=== PATIENT | female | born 1965 | race Caucasian/White ===

== ENCOUNTER → 2019-05-01 07:33 | Outpatient (CLI) | payer BC, SELFPAY ==
[2019-04-09 13:15] VITALS: BMI 28.6
--- NOTE | 2019-05-02 12:53 | STRESSREP_ITS ---
Stress Test Report Date: 05/01/2019 Procedure: Exercise tolerance test/imaging study Indications: Chest pain, cardiomyopathy Consent: Per the patient Procedure: The patient exercised on a [place] protocol for 9 minutes and 30 seconds achieving a peak heart rate of 133 bpm (80 % predicted maximal heart rate) with a peak blood pressure 172/74 mmHg and a peak MET capacity of 10.9 METs. The baseline ECG demonstrated normal sinus rhythm, right bundle branch block. The peak exercise ECG demonstrated sinus tachycardia with no significant ST-T changes diagnostic for ischemia. EKG during recovery revealed no significant ischemic changes. There were occasional PVCs during recovery. The functional capacity was considered above average for age. There was 5/10 chest pain with peak exercise. The examination was discontinued secondary to fatigue. Impression: 1. Inability to reach 85% of maximal age-predicted heart rate does decrease the sensitivity of this test. 2. Stress test is negative for exercise-induced EKG changes of ischemia 3. The test test positive for exercise-induced chest pain 4. Functional capacity is above average 5. Nuclear images pending Myocardial perfusion imaging study: Technique: The patient was injected with 11.7 mCi of technetium 99m Cardiolite and subsequently rest SPECT Cardiolite nuclear imaging was obtained in the horizontal long, vertical long, and short axis views. The patient exercised on a [place] protocol. Please see above for details. The patient was injected with 39.2 mCi of technetium 99m Cardiolite and subsequently stress SPECT Cardiolite nuclear imaging was obtained in the horizontal long, vertical long, and short axis views. A gated Cardiolite study at peak stress was obtained. Interpretation: Rest and stress SPECT Cardiolite nuclear imaging status post realignment, normalization, and attenuation correction, demonstrates normal myocardial radioisotope uptake in the rest and stress images. The gated Cardiolite study demonstrates mild global hypokinesis. The reported LVEF is 45 %. Impression: 1. There is no evidence of significant ischemia or infarction. 2. The gated Cardiolite study reports an LVEF of 45 %. This note was generated with [employer] software. It may contain incorrect words, spelling, and punctuation that were not noted in checking the note before signing.
== END ==
LOC: CVS 07:33
PROVIDERS: Family Provider Nurse Practitioner Adult Health; PCP Nurse Practitioner Adult Health; Referring Provider Specialist; Visit Provider Specialist
DX: R07.9 Chest pain, unspecified (principal)
CPT/HCPCS: 78452; 93017; A9500; A4216

== ENCOUNTER → 2021-07-01 06:23 | Outpatient (CLI) | payer OTHER, SELFPAY ==
[2020-08-10 12:48] VITALS: BMI 28.8
--- NOTE | 2021-07-01 06:27 | ECHOD_ITS ---
Reason For Study: DYSPNEA/SOB Procedure This was a 2D Doppler, Color Flow transthoracic echocardiogram. The study was technically difficult. Due to intermittent arrhythmia. Exam performed in department. Left Ventricle Normal LV size. Left ventricular systolic function is normal. The estimated ejection fraction is 60 %. Septal bounce. Transmitral doppler flow suggestive of impaired relaxation of left ventricle. No regional wall motion abnormalities noted. Right Ventricle Normal RV size. ICD or pacer leads identified within the right ventricle. Normal systolic function. Atria Normal left atrium. Normal right atrium. ICD or pacer leads identified within the right atrium. No doppler evidence for ASD. Mitral Valve There is no mitral annular calcification. Normal mitral valve. Trivial mitral valve insufficiency. Tricuspid Valve Normal tricuspid valve. Trivial tricuspid valve insufficiency. Right ventricular systolic pressure estimated to be 25 mmHg. Aortic Valve Trisinus/trileaflet aortic valve. Mild diffuse aortic valve thickening. Pulmonic Valve The pulmonic valve is not well visualized. Trivial pulmonic valve insufficiency. Great Vessels Normal sized aortic root. Pericardium/Pleural No pericardial effusion. MMode/2D Measurements & Calculations LVIDd: 5.4 cm IVSd: 0.95 cm Ao root diam: 3.2 cm LVIDs: 3.6 cm LVPWd: 1.0 cm RVDd: 3.9 cm FS: 32.1 % LAV(MOD-bp): 55.6 ml LVAd ap4: 33.7 cm2 LVAd ap2: 27.8 cm2 LAV(MOD-bp) Indexed: 27.2 ml/m2 LVLd ap4: 8.3 cm LVLd ap2: 8.3 cm LAV(MOD-sp2): 49.5 ml EDV(MOD-sp4): 115.9 ml EDV(MOD-sp2): 78.6 ml LAV(MOD-sp4): 51.5 ml EDV(sp4-el): 116.3 ml EDV(sp2-el): 79.7 ml LVAs ap4: 16.0 cm2 LVAs ap2: 16.7 cm2 LVLs ap4: 6.1 cm LVLs ap2: 7.4 cm ESV(MOD-sp4): 38.4 ml ESV(MOD-sp2): 32.6 ml ESV(sp4-el): 35.9 ml ESV(sp2-el): 32.4 ml EF(MOD-sp4): 66.9 % EF(MOD-sp2): 58.5 % EF(sp4-el): 69.1 % SV(MOD-sp4): 77.5 ml SV(MOD-sp2): 46.0 ml SV(sp4-el): 80.3 ml LA A4 area: 19.2 cm2 RA A4 area: 17.1 cm2 Time Measurements MV dec time: 0.27 sec Doppler Measurements & Calculations MV E max emile: 63.3 cm/sec Lat Peak E' Emile: 5.6 cm/sec Med Peak E' Emile: 7.7 cm/sec MV A max emile: 73.9 cm/sec E/E' lat: 11.3 E/E' med: 8.3 MV E/A: 0.86 Ao V2 max: 128.1 cm/sec LV V1 max: 106.3 cm/sec PA V2 max: 106.0 cm/sec Ao max P.6 mmHg LV V1 max P.5 mmHg TR max emile: 232.4 cm/sec TR max P.6 mmHg ECHO/Echo Complete Interpretation Summary The study was technically difficult. Left ventricular systolic function is normal. The estimated ejection fraction is 60 %. Septal bounce. Trivial mitral valve insufficiency. Trivial tricuspid valve insufficiency. Mild diffuse aortic valve thickening. Trivial pulmonic valve insufficiency. Right ventricular systolic pressure estimated to be 25 mmHg. Transmitral doppler flow suggestive of impaired relaxation of left ventricle ICD or pacer leads identified within the right atrium ICD or pacer leads identified within the right ventricle. Ordering Physician: Kristel Key Referring Physician: Brittaney Jimenes Performed By: Betina Cates, KAHLIL, RVT
--- NOTE | 2021-07-05 09:07 | STRESSREP ---
Stress Test Report Date: 07-05-2021 Procedure: Pharmacologic stress nuclear imaging study Indications: Chest pain; shortness of breath/dyspnea; atrial fibrillation; ventricular tachycardia; status post EPS/RFA; cardiomyopathy Consent: Per the patient Procedure: The patient underwent pharmacologic (Regadenoson 0.4mg ) evaluation with a peak heart rate of 76 beats per minute (46%predicted maximal heart rate) and a peak blood pressure of 132/82 mmHg. The baseline ECG demonstrated electronic atrial pacemaker; right bundle branch block pattern. The peak pharmacologic ECG demonstrated sinus rhythm; continued right bundle branch block pattern; no obvious ECG changes. There were no cardiac dysrhythmias pretest, during pharmacologic infusion, or recovery. There was no complaint of chest discomfort during pharmacologic infusion or recovery. The examination was discontinued secondary to completion of protocol. Impression: 1. Pharmacologic (Regadenoson) evaluation 2. Peak pharmacologic ECG with sinus rhythm with continued right bundle branch block pattern with no obvious ECG changes. 3. There were no cardiac dysrhythmias pretest, during pharmacologic infusion, or recovery. 4. Nuclear images pending Myocardial perfusion imaging study: Technique: The patient was injected with 15.0 millicuries of technetium 99m Cardiolite and subsequently rest SPECT Cardiolite nuclear imaging was obtained in the horizontal long, vertical long, and short axis views. The patient underwent pharmacologic (Regadenoson) evaluation with a peak heart rate of 76 beats per minute (46% percent predicted maximal heart rate) and a peak blood pressure of 132/82 mmHg. The patient was injected with 45.0 millicuries of technetium 99m Cardiolite and subsequently stress SPECT Cardiolite nuclear imaging was obtained in the horizontal long, vertical long, and short axis views. A gated Cardiolite study at peak stress was not obtained. Interpretation: Rest and stress SPECT Cardiolite nuclear imaging status post realignment, normalization, and attenuation correction demonstrate insert normal. Impression: 1. Rest and stress SPECT Cardiolite nuclear imaging demonstrate relative uniform tracer uptake and myocardial perfusion appearing within normal limits. 2. The gated Cardiolite was not obtained. This note was generated with [employer] software. It may contain incorrect words, spelling, and punctuation that were not noted in checking the note before signing.
== END ==
LOC: CVS 06:25
PROVIDERS: PCP Nurse Practitioner Adult Health; Referring Provider Physician Assistant Medical; Visit Provider Physician Assistant Medical
DX: I10 Essential (primary) hypertension (principal); I48.91 Unspecified atrial fibrillation; R07.9 Chest pain, unspecified; R06.02 Shortness of breath
CPT/HCPCS: 78452; 93017; 93306; A9500; A4216; J2785

== ENCOUNTER 2023-03-15 11:46 | Day surgery (SDC) | payer BC, SELFPAY ==
[2023-03-12 10:48] LABS: Mucous, Urine 0 SEEN /hpf (<or=2+)
[2023-03-12 11:06] LABS: Hematocrit 43.4 % (37-47); Hemoglobin 13.9 g/dL (12.0-15.0); Mean Corpuscular Hgb 30.2 pg (27.0-32.0); Mean Corpuscular Volume 94.1 fL (81-99); Mean Platelet Vol. 9.5 fl (6.2-12.0); Platelet Count 192 K/mm3 (150-450); RBC Distribution Width CV 12.8 % (11.6-14.6); RBC Distribution Width SD 44.7 fl (35.1-43.9); Red Blood Count 4.61 M/mm3 (4.2-5.4); White Blood Count 5.2 K/mm3 (4.4-11.0)
[2023-03-12 11:13] LABS: Color, Urine Yellow (Yellow); Glucose, Dipstick Normal (Normal); Ketone-Dipstick Negative (Negative); Leukocyte Esterase-Dipstick 500 /ul (Negative); Nitrite-Dipstick Negative (Negative); Occult Blood-Urine 10 /ul (Negative); Protein-Dipstick Negative (Negative); Urine Bilirubin Dipstick Negative (Negative); Urine Clarity Sl. Cloudy (Clear); Urine Urobilinogen Normal (Normal)
[2023-03-12 11:16] LABS: Prothrombin Time (Protime)PT. 13.2 SECONDS (11.7-14.9)
[2023-03-12 11:19] LABS: Bacteria 1+ /hpf (None Seen); Red Blood Cells-Urine 0-5 SEEN /hpf (0-5); Squamous Epithelial Cells - UA 0-5 SEEN /hpf (5-10); White Blood Cells 25-50 SEEN /hpf (0-5)
[2023-03-12 11:24] LABS: Anion Gap 6 (5-15); BUN 11 mg/dL (7-18); BUN/Creat Ratio 12.3 RATIO (10-20); Calcium,Total 9.6 mg/dL (8.5-10.1); Chloride 107 mmol/L (98-107); EST Glomerular Filtration Rate 69 mL/min (>60); Est Glom Filt Rate - Afr Amer 83 mL/min (>60); Glucose 110 mg/dL (74-106); Potassium 4.3 mmol/L (3.5-5.1); Sodium Level 142 mmol/L (136-145)
[2023-03-14 08:35] VITALS: BMI 28.0
--- NOTE | 2023-03-15 14:41 | EX.DEFIBPROC ---
Defibrillator Procedure Note Defibrillator Procedure Note Diagnosis: Cardiomyopathy with NYHA Class ii. ICD for secondary prevention. Device generator replacement for normal battery depletion Preoperative diagnosis is device at end of life for normal battery depletion. Postoperative diagnosis same as above. After informed consent and IV antibiotics the patient was brought to the [place] catheterization laboratory and the skin over the device was prepped and draped in the usual sterile manner. Intermittent boluses of Versed, and fentanyl were used for sedation and analgesia as well as 1% subcutaneous lidocaine. An incision was made over the pre-existing device. Using blunt and Bovie dissection the pocket was opened and the device was removed. Careful attention was paid not to injure the pre-existing leads. The leads were removed from the device header and they were interrogated. There is normal lead function. Hemostasis was obtained. The pocket was flushed with antibiotic solution. The sponge and needle count were correct. The new device was brought to the field. The leads were placed in the appropriate position in the header and secured by the set screw. The leads and the device were then placed in the pocket. The pocket was closed with a deep layer of running 2-0 Vicryl, a superficial layer of running 4-0 Vicryl, skin with Steri-Strips which were covered with a rolled 4 x 4 and Tegaderm. Patient left the room with the device programmed to proper parameters and there were no complications. The device is a dual chamber Anna ICD generator. All lead parameters were tested and found to be functionally normal. Lead and device serial and model numbers are available in the chart documents provided by the device company electroplating sales representative procedure summary.
== END 2023-03-15 16:15 | disposition home or self-care (01) ==
PROVIDERS: Nurse Practitioner Gerontology; PCP Nurse Practitioner Adult Health; Referring Provider Internal Medicine Cardiovascular Disease; Visit Provider Internal Medicine Cardiovascular Disease
DX: I47.20 Ventricular tachycardia, unspecified (principal); J44.9 Chronic obstructive pulmonary disease, unspecified; I48.91 Unspecified atrial fibrillation; I10 Essential (primary) hypertension; Z95.810 Presence of automatic (implantable) cardiac defibrillator; Z82.49 Family history of ischemic heart disease and other diseases of the circulatory system
CPT/HCPCS: 33263; 36415; 80048; 81001; 85027; 85610; 93641; 99152; 99153; J7040; J7050